=== PATIENT | female | born 1990 | race Two or more races ===

== ENCOUNTER 2025-02-13 14:00 | Inpatient (IN) | payer OTHER ==
[~2025-02-13] VITALS: Ht 160 cm; Wt 70.8 kg
[2025-02-13 15:19] LABS: BASO % 0.1 % (0.1-1.2); EOS # 0.04 (0.04-0.54); EOS % 0.3 % (0.7-7.0); LYMPH # 1.41 (1.18-3.74); LYMPH % 12.0 % (19.3-53.1); MEAN PLATELET VOLUME 9.70 fl (9.4-12.4); MONO # 0.69 (0.24-0.82); MONO % 5.9 % (4.7-12.5); NEUT # 9.54 (1.56-6.13); NEUT % 81.3 % (34.0-71.1); RED CELL DISTRIBUTION WIDTH 12.7 % (11.6-14.4)
[2025-02-13 15:21] LABS: URINE APPEARANCE Clear; URINE BILIRRUBIN Negative (NEGATIVE); URINE BLOOD Negative; URINE COLOR Yellow; URINE GLUCOSE Negative (NEGATIVE); URINE KETONE Negative (NEGATIVE); URINE LEUKOCYTE Negative; URINE NITRATE Negative; URINE PROTEIN Negative (NEGATIVE); URINE UROBILINOGEN 0.2 E.U./dl
[2025-02-13 15:25] LABS: URINE BACTERIA 10.7 uL (0.0-1933); URINE CAST 0.14 uL (0.0-1.40); URINE EPITHELIAL CELLS 2.5 uL (0.0-38.8); URINE RBC 1.7 uL (0.0-20.8); URINE WBC 1.9 uL (0.0-23.2)
[2025-02-13 15:57] LABS: ALT/SGPT 38.0 U/L (12-78); AST/SGOT 21.0 U/L (15-37); BILIRUBIN TOTAL 0.24 mg/dL (0.3-1.2); BUN CREA RATIO 22.0 (7.0-25.0); CREATININE SERUM 0.6 mg/dL (0.55-1.02); GFR 113.11; GLOBULINA 3.7 G/DL (2.4-3.5); GLUCOSE FASTING 88.0 mg/dL (65-100); OSMOLALITY SERUM 281.0 MOSM/KG (275-295)
[2025-02-13 17:15] LABS: INR < 0.93
[2025-02-18] VITALS (7 sets, daily range): BP systolic 121–138; BP diastolic 71–83; O2SAT 100
[2025-02-18] MEDS ORDERED: RINGERS SOLUTION,LACTATED 1,000 ML IV SCH (06:30)
[2025-02-18] MEDS ORDERED: CHILDREN'S ASPI81 MG (06:33)
[2025-02-18] MEDS ORDERED: PRENATAL TABLE1 EAC1 (06:33)
[2025-02-18 07:24] LABS: BASO % 0.2 % (0.1-1.2); EOS # 0.06 (0.04-0.54); EOS % 0.6 % (0.7-7.0); LYMPH # 1.62 (1.18-3.74); LYMPH % 16.2 % (19.3-53.1); MEAN PLATELET VOLUME 9.90 fl (9.4-12.4); MONO # 0.65 (0.24-0.82); MONO % 6.5 % (4.7-12.5); NEUT # 7.57 (1.56-6.13); NEUT % 76.0 % (34.0-71.1); RED CELL DISTRIBUTION WIDTH 12.5 % (11.6-14.4)
[2025-02-18 07:31] LABS: URINE APPEARANCE Clear; URINE BILIRRUBIN Negative (NEGATIVE); URINE BLOOD Small; URINE COLOR Yellow; URINE GLUCOSE Negative (NEGATIVE); URINE KETONE Trace (NEGATIVE); URINE LEUKOCYTE Negative; URINE NITRATE Negative; URINE PROTEIN Negative (NEGATIVE); URINE UROBILINOGEN 0.2 E.U./dl
[2025-02-18 07:36] LABS: URINE BACTERIA 498.9 uL (0.0-1933); URINE EPITHELIAL CELLS 18.3 uL (0.0-38.8); URINE RBC 3.5 uL (0.0-20.8); URINE WBC 7.5 uL (0.0-23.2)
[2025-02-18 07:53] LABS: INR 0.94
[2025-02-18 08:03] LABS: URINE CAST 0.14 uL (0.0-1.40)
[2025-02-18 08:19] LABS: ALT/SGPT 36.0 U/L (12-78); AST/SGOT 19.0 U/L (15-37); BILIRUBIN TOTAL 0.36 mg/dL (0.3-1.2); BUN CREA RATIO 13.0 (7.0-25.0); CREATININE SERUM 0.55 mg/dL (0.55-1.02); GFR 125.06; GLOBULINA 3.2 G/DL (2.4-3.5); GLUCOSE FASTING 76.0 mg/dL (65-100); OSMOLALITY SERUM 278.0 MOSM/KG (275-295)
[2025-02-18] MEDS ORDERED: MORPHINE SULFATE 4 MG/ML CARTRIDGE IV PRN (16:15)
[2025-02-18] MEDS ORDERED: OXYTOCIN 500 ML IV SCH (16:15)
[2025-02-19] VITALS (8 sets, daily range): BP systolic 109–122; BP diastolic 58–72
[2025-02-19] MEDS ORDERED: ACETAMINOPHEN 500 MG GEL..CAP PO PRN (01:00)
[2025-02-19] MEDS ORDERED: CHLORHEXIDINE GLUCONATE 120 ML BOTTLE TP SCH (01:15)
[2025-02-19] MEDS ORDERED: OXYTOCIN 1,000 ML IV SCH (01:15)
[2025-02-19] MEDS ORDERED: ERYTHROMYCIN BASE OPHT 1GM EACH TUBE OP ONE (01:15)
[2025-02-19] MEDS ORDERED: PNV,CALCIUM 72/IRON/FOLIC ACID 1 TAB TABLET PO SCH (09:00)
[2025-02-19 10:20] LABS: BASO % 0.1 % (0.1-1.2); EOS # 0.00 (0.04-0.54); EOS % 0.0 % (0.7-7.0); LYMPH # 1.24 (1.18-3.74); LYMPH % 5.5 % (19.3-53.1); MEAN PLATELET VOLUME 9.70 fl (9.4-12.4); MONO # 1.43 (0.24-0.82); MONO % 6.3 % (4.7-12.5); NEUT # 19.84 (1.56-6.13); NEUT % 87.4 % (34.0-71.1); RED CELL DISTRIBUTION WIDTH 12.9 % (11.6-14.4)
[2025-02-20 01:14] VITALS: BP 112/71
[2025-02-20 08:13] VITALS: BP 121/82
== END 2025-02-20 17:55 | disposition home or self-care (01) | DRG 807 ==
LOC: LDR 02-18 06:22 → OB/GYN 02-19 01:07
PROVIDERS: Obstetrics & Gynecology; ADMIT Student in an Organized Health Care Education/Training Program; ATTEND Student in an Organized Health Care Education/Training Program
PROC: 10E0XZZ Delivery of Products of Conception, External Approach (ICD-10-PCS; principal; 2025-02-18)
PROC: 0UQG7ZZ Repair Vagina, Via Natural or Artificial Opening (ICD-10-PCS; 2025-02-18)
PROC: 4A1HXCZ Monitoring of Products of Conception, Cardiac Rate, External Approach (ICD-10-PCS; 2025-02-18)
DX: O71.4 Obstetric high vaginal laceration alone (principal); Z37.0 Single live birth; Z3A.38 38 weeks gestation of pregnancy